=== PATIENT | female | born 1970 | race Caucasian/White ===

== ENCOUNTER 2022-05-15 13:23 | Emergency (ER) | payer MEDICAID ==
[~2022-05-15] VITALS: Ht 152.4 cm; Wt 69.4 kg
[2022-05-15] MEDS ORDERED: PROAIR HFA8.5 GM INH (13:54)
[2022-05-15] MEDS ORDERED: SERTRALINE HCL150 MG PO (13:54)
[2022-05-15] MEDS ORDERED: BUSPIRONE HCL5 MG PO (13:55)
[2022-05-15] MEDS ORDERED: 24 HOUR ALLER15.8 ML INH (13:55)
[2022-05-15] MEDS ORDERED: ALLER-EASE60 MG PO (13:56)
== END 2022-05-16 12:03 | disposition home or self-care (01) ==
LOC: ED 13:23
DX: R45.851 Suicidal ideations (principal); Z20.822 Contact with and (suspected) exposure to COVID-19; J44.9 Chronic obstructive pulmonary disease, unspecified; F43.10 Post-traumatic stress disorder, unspecified; Z88.5 Allergy status to narcotic agent; Z88.1 Allergy status to other antibiotic agents; Z79.899 Other long term (current) drug therapy
CPT/HCPCS: 36415; 80053; 81001; 84443; 84703; 85025; 87502; 99285; A9270; C9803; G0480; U0003